=== PATIENT | male | born 1970 | race Caucasian/White ===

== ENCOUNTER 2017-07-08 17:51 | Emergency (ER) | payer BC ==
[~2017-07-08] VITALS: Ht 182.9 cm; Wt 137.9 kg
[~2017-07-08 17:51] MED LIST: DIOVAN HCT 12.51 TAB PO
--- OUTSIDE RECORDS SUMMARY | 2017-07-08 17:58 | External Medical Summary Rpt | CCD ---
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 Name Role Phone Norberto Salomon MD, Unavailable Unavailable Norberto Salomon MD Purpose Continuity of Care Document - 12-18-2012 through 2016 Problems Code Diagnosis DOS Provider Status 401.9 401.9 12-18-2012 [facility] 729.5 729.5 PAIN 12-18-2012 [facility] Allergies, Adverse Reactions, Alerts Type Drug Allergy Adverse Reaction to Substance Substance Reaction Severity No Known Drug Unknown Unknown Allergies - Nkda Medications Na ND Rx Da Fi Fi Am Da Di Ph RX Ph St me C No te ll ll ou ys ag ar # ys at rm s nt no ma ic us Or Da si cy ia de te s n re d 63 05 0 No PI 73 -1 RI 90 9- Lo N 43 20 ng 81 40 13 er 1 MG Ac ti CH ve EW AB LE TA BL ET Sa 63 05 0 No li 80 -1 ne 70 9- Lo 10 20 ng Fl 07 13 er us 5 h Ac 10 ti ML ve Sy ri ng e Mo 00 05 0 No rp 40 -1 hi 91 9- Lo ne 25 20 ng 83 13 er 4M 0 G/ Ac Ml ti ve Sy ri ng e Vital Signs 12-18-2012 16:10 Name Value Interpretat Reference Comment ion Range BP 75 mm[Hg] Diastolic BP Systolic 112 mm[Hg] Heart 82 /min Rate/Pulse O2% 96 % Respiratory 19 /min Rate 12-18-2012 14:34 Name Value Interpretat Reference Comment ion Range BP 91 mm[Hg] Diastolic BP Systolic 110 mm[Hg] Heart 67 /min Rate/Pulse O2% 93 % Respiratory 20 /min Rate Results Labs Lab Lab Date Result Refere Interp Status Commen Order Detail nces retati t Range on CK SerPl-cCnc (12-18-2012 15:30) CK 240 U/L 39-308 complet SerPl-c 013 ed Cnc 15:30 CK MB SerPl-mCnc (12-18-2012 15:30) CK MB 1.9 0.0-3.6 complet SerPl-m 013 ng/mL ed Cnc 15:30 TROPONIN I (12-18-2012 15:30) TROPONI Less 0.00-0. complet N I 013 than 06 ed 15:30 0.02 ng/mL BASIC METABOLIC PANEL (12-18-2012 13:44) Glucose 123 74-106 complet 013 mg/dL ed Bld-mCn 13:44 c BUN 20 7-18 complet Bld-mCn 013 mg/dL ed c 13:44 Creat 1.4 0.8-1.3 complet SerPl-m 013 mg/dL ed Cnc 13:44 ESTIMAT 130 50-200 complet ED 013 ML/MIN ed CREATIN 13:44 INE CLEARAN CE GFR 56 Greater complet (ESTIMA 013 ML/MIN than ed TEENA) 13:44 60 Sodium 136 136-145 complet SerPl-s 013 mmoL/L ed Cnc 13:44 Potassi 3.6 3.5-5.1 complet um 013 mmoL/L ed SerPl-s 13:44 Cnc Chlorid 101 98-107 complet e 013 mmoL/L ed SerPl-s 13:44 Cnc CO2 29 21.0-32 complet SerPl-s 013 mmoL/L .0 ed Cnc 13:44 Calcium 8.7 8.5-10. complet 013 mg/dL 1 ed SerPl-m 13:44 Cnc CK SerPl-cCnc (12-18-2012 13:44) CK 2 249 U/L 39-308 complet SerPl-c 013 ed Cnc 13:44 CK MB SerPl-mCnc (12-18-2012 13:44) CK MB 1.4 0.0-3.6 complet SerPl-m 013 ng/mL ed Cnc 13:44 TROPONIN I (12-18-2012 13:44) TROPONI 05-19-2 Less 0.00-0. complet N I 013 than 06 ed 13:44 0.02 ng/mL CBC with AUTO DIFF (12-18-2012 13:44) WBC # 05-19-2 6.2 4.8-10. complet Bld 013 K/MM3 8 ed Auto 13:44 RBC # 05-19-2 4.91 4.6-6.2 complet Bld 013 M/mm3 ed Auto 13:44 Hgb 05-19-2 14.3 14.1-18 complet Bld-mCn 013 g/dL .0 ed c 13:44 Hct Fr 05-19-2 42.4 % 42.0-52 complet Bld 013 .0 ed 13:44 MCV RBC 05-19-2 86.4 fl 82.2-97 complet 013 .8 ed 13:44 MCH RBC 05-19-2 29.2 pg 27-31.2 complet Qn 013 ed Auto 13:44 MEAN 05-19-2 33.8 31.8-35 complet CORPUSC 013 g/dl .4 ed ULAR 13:44 HGB CONC RDW RBC 05-19-2 14.7 % 11.5-17 complet Auto 013 .5 ed 13:44 Platele 05-19-2 187 142-424 complet t Bld 013 K/mm3 ed Ql 13:44 Manual MEAN 05-19-2 9.2 fl 7.4-10. complet PLATELE 013 4 ed T 13:44 VOLUME Granulo 05-19-2 66.0 % 37.0-80 complet cytes 013 .0 ed Fr Bld 13:44 Auto LYMPH % 05-19-2 23.3 % 10-50 complet 013 ed 13:44 Monocyt 05-19-2 8.0 % 1.7-9.3 complet es Fr 013 ed Bld 13:44 Auto Eosinop 05-19-2 2.3 % 0.1-12. complet hil Fr 013 0 ed Bld 13:44 Auto Basophi 05-19-2 0.5 % 0.1-2.0 complet ls Fr 013 ed Bld 13:44 Auto Granulo 05-19-2 4.1 1.3-8.0 complet cytes # 013 K/mm3 ed Bld 13:44 Auto Lymphoc --2 1.4 0.7-4.5 complet ytes Fr 013 K/mm3 ed Bld 13:44 Auto Monocyt 12-18-2 0.5 0.1-1.0 complet es # 013 K/mm3 ed Bld 13:44 Auto Eosinop 12-18-2 0.1 0.0-0.4 complet hil # 013 K/mm3 ed Bld 13:44 Auto Basophi 12-18-2 0.0 0-0.2 complet ls # 013 K/MM3 ed Bld 13:44 Auto Encounters Encounter Start End Date Code Location Performer Type Date Emergency KALA Salomon MD (ER) 3 13:30 3 16:20 [facility]
--- OUTSIDE RECORDS SUMMARY | 2017-07-08 17:58 | External Medical Summary Rpt | CCD ---
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
--- OUTSIDE RECORDS SUMMARY | 2017-07-08 17:58 | External Medical Summary Rpt | CCD ---
Author Author [employer] Organization [employer] Address Unknown Phone Unavailable Purpose Continuity of Care Document - through 2016
--- OUTSIDE RECORDS SUMMARY | 2017-07-08 17:58 | External Medical Summary Rpt | CCD ---
Author Author , DIEGO Organization DIEGO Address Unknown Phone [email or web address] Immunization Name Date Rout CVX Reac Dose Comm Prov Is Faci e tion ent ider Refu lity Give sed n Tdap 10-0 115 0.5 Hist [facility] No RITE , 8-20 mL oric TRISTA AID0 Adso 17 al AYMA 3920 rbed Info N rmat ion - Sour ce Unsp ecif ied Infl 10-0 150 0.5 Hist [facility] No RITE uenz 5-20 mL oric TRISTA AID0 a 17 al AYMA 3920 Quad Info N Inj rmat ion - Sour ce Unsp ecif ied Hep 02-2 Intr 43 999 Hist H125 No H125 B, 3-19 amus oric adul 98 cula al t r Info rmat ion - Sour ce Unsp ecif ied Hep 01-2 Intr 43 999 Hist H125 No H125 B, 0-19 amus oric adul 98 cula al t r Info rmat ion - Sour ce Unsp ecif ied
--- OUTSIDE RECORDS SUMMARY | 2017-07-08 17:58 | External Medical Summary Rpt | CCD ---
Author Author , DIEGO Organization DIEGO Address Unknown Phone [email or web address] [email or web address] Name Date Rout CVX Reac Dose [...]
--- NOTE | 2017-07-08 19:26 | Urgent Treatment Center Report ---
History of Present Issue Date/Time Seen by Provider 07/08/171924 Visit Reason Pt arrived:Walked Presenting Problem:CONGESTION BEGAN LAST NIGHT ' Location if Accident: Onset of symptoms date/time:/ or onset unknown for:MEDICAL HX UNKNOWN Have you (or family members/close friends) recently traveled outside the [place]? N If Yes, where/when: Have you had exposure to infectious disease within the past month? TB? Other? Specify: Patient state that he has been having sinus pain and pressure along with cough and congestion State that he began to feel bad last night State that today he began having cough and feeling worse State that he came in this evening to get some medication to help him feel better ALLERGIES Coded Allergies: No Known Allergies (07/08/17) Home Medications Reported Medications Hydrochlorothiazide/Valsarta (Diovan Hct 12.5 Mg-160 Mg) 1 TAB PO DAILY History Medical History General Angina: No VA: No Hypertension? Yes Hyperlipidemia? No CHF? No COPD? No Asthma? No CVA? Yes Seizures? No Diabetes? No GB Disease: No MRSA? No TB? No Cancer? No Immunization HX DT/Tetanus 5-10 YRS Surgical Hx Previous Surgery?Y Hernia Repair TONSILS/ADNOIDS WISDOM TEETH Social History Smoking Hx Smoker: Never Smoker Tobacco: No Packs/day < 1 Pack Alcohol Alcohol: No Review of Systems All Other Systems Reviewed and Negative ENT nose congestion, throat pain. Respiratory cough Physical Exam Vital Signs Vital Signs Date Time Temp Pulse Resp B/P Pulse O2 O2 Flow FiO2 Ox Delivery Rate 07/08 1958 97.8 86 18 110/75 98 07/08 1905 97.8 86 18 110/75 98 General Appearance normal appearance, WD/WN, no apparent distress Ear, Nose, Throat sinus pain/drainage, nasal congestion, Tenderness noted maxillary sinus, throat red, irritated drainage noted Respiratory Status Yes: trachea midline, chest symmetrical, non tender chest. No: respiratory distress. Lung Sounds bilateral: normal breath sounds, lungs clear. Cardiovascular normal exam, regular rate/rhythm Neurologic alert, normal exam, oriented x 3 Medical Decision Making LABS/Meds/Orders Pt receiving controlled substance in ED? No Results/Orders Current Medication Orders Sig/Jessica Start time Last Medication Dose Route Stop Time Status Admin Ceftriaxone Sodium 1 GM ONCE ONE 07/08 1945 DC 07/08 IM 07/08 Lidocaine HCl 0 ONCE ONE 07/08 1945 DC 07/08 IM 07/08 Methylprednisolone 125 MG ONCE ONE 07/08 1945 DC 07/08 Sodium Succinate IM 07/08 Ceftriaxone Sodium 0 .STK-MED ONE 07/08 1944 DC .ROUTE Lidocaine HCl 0 .STK-MED ONE 07/08 1944 DC .ROUTE Methylprednisolone 0 .STK-MED ONE 07/08 1944 DC Sodium Succinate .ROUTE Departure Departure Time of Disposition 1935 Disposition DC Home or Self Care(routine) Clinical Impression Primary Impression: Upper respiratory infection Qualifiers: URI type: unspecified URI Qualified Code: J06.9 - Acute upper respiratory infection, unspecified Condition STABLE Referrals Scooter MARY,A.C. (Family): 3 Days-Call Office if no improvement Patient Instructions Cough, DI for Nasal Congestion, Sore Throat Additional Instructions * Monitor Temp. Tylenol and/or Ibuprofen as needed. ER if fever is no less than 101 despite alternating Tylenol and Ibuprofen * Encourage fluids, water, Gatorade, powerade, pedialyte if /toddler/or child * Warm salt water gargles for throat irritation *Warm fluids *Sore throat lozenges *Sleep elevated *humidifier or vaporizer Lots of rest Increase fluids, water, Gatorade, powerade *Flonase 2 sprays each nostril daily but may take 2-3 days to notice improvement with it Follow up IMMEDIATELY for new or worsening of symptoms OR no noticeable improvement over the next 48-72 hours. 911 immediately for any life threatening symptoms such as chest pain or difficulty breathing Discharge Counseling Counseled pt/family regarding diagnosis, test results, medications/RX, home care, follow up needs at [phone]
[2017-07-08 19:58] VITALS: BP 110/75
== END 2017-07-08 19:58 | disposition home or self-care (01) ==
LOC: UTC 17:51
DX: J06.9 Acute upper respiratory infection, unspecified (principal)